=== PATIENT | male | born 1990 | race Caucasian/White ===

== ENCOUNTER → 2021-05-23 | Outpatient (CLI) | payer OTHER ==
--- NOTE | 2021-05-23 15:31 | Diagnostic Imaging Report ---
INDICATION: Displaced fracture of the hamate. Wrist pain. EXAMINATION: Right hand 05/23/2021. COMPARISON: None. FINDINGS: 4 views of the right hand. There is an osseous fragment along the dorsal aspect of the wrist, presumably the known hamate fracture. No priors are available for comparison. There is no callous appreciated. There is mild overlying soft tissue swelling. Remaining osseous structures appear intact. IMPRESSION: Osseous fragment along the dorsum of the wrist, presumably the known hamate fracture, with no priors available for comparison. Dictated by: Dictated on workstation # [id number]
== END ==
LOC: RAD FS 14:53
PROVIDERS: ATTEND Nurse Practitioner
DX: S62.141D Displaced fracture of body of hamate [unciform] bone, right wrist, subsequent encounter for fracture with routine healing (principal); X58.XXXD Exposure to other specified factors, subsequent encounter
CPT/HCPCS: 73130